=== PATIENT | female | born 1990 | race Caucasian/White ===

== ENCOUNTER 2017-11-21 21:33 | Emergency (ER) | payer OTHER ==
[~2017-11-21] VITALS: Ht 177.8 cm; Wt 87.5 kg
[2017-11-21] MEDS ORDERED: VENTOLIN HFA18 GM INH (21:54)
[2017-11-21] MEDS ORDERED: CELEXA10 MG PO (21:54)
[2017-11-21] MEDS ORDERED: PREDNISONE20 MG PO (23:31)
== END 2017-11-21 23:45 | disposition home or self-care (01) ==
LOC: ED 21:33
DX: J45.901 Unspecified asthma with (acute) exacerbation (principal); Z79.899 Other long term (current) drug therapy
CPT/HCPCS: 99283